=== PATIENT | male | born 2000 | race African-American/Black ===

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

== ENCOUNTER 2021-06-15 16:17 | Emergency (ER) | payer BC, MEDICAID ==
[~2021-06-15] VITALS: Ht 185.4 cm; Wt 109.4 kg
--- OUTSIDE RECORDS SUMMARY | 2021-06-15 16:21 | XMS REPORT | Clinical Summary ---
Author Author [facility] Organization [facility] Address Unknown Phone Unavailable Care Team Providers Care Hr Specialist Name Role Phone No, Pcp INSURANCE COUNSELOR PP Unavailable Allergies No known active allergies Medications No known medications Active Problems Not on file Social History Date Tobacco Use Types Packs/Day Years Used Never Smoker Smokeless Tobacco: Never Used Sex Assigned at Date Recorded Not on file Last Filed Vital Signs Reading Time Taken Comments Vital Sign 128/80 04/22/2020 4:01 PM EDT Blood Pressure 61 04/22/2020 3:45 PM EDT Pulse 36.6 C (97.8 F) 04/22/2020 3:45 PM EDT Temperature 20 04/22/2020 3:45 PM EDT Respiratory Rate 98% 04/22/2020 3:45 PM EDT Oxygen Saturation - - Inhaled Oxygen Concentration 119 kg (263 lb) 04/22/2020 3:45 PM EDT Weight 185.4 cm (6' 1") 04/22/2020 3:45 PM EDT Height 34.7 04/22/2020 3:45 PM EDT Body Mass Index 98.93 % 04/22/2020 3:45 PM EDT Body Mass Index Percentile Growth Chart: [facility] (Boys, 2-20 Years) Plan of Treatment Not on file Results Not on filefrom Last 3 Months Insurance Type Payer Benefit Subscriber ID Effective Phone Address Plan / Dates Group UNINSURED-COVID [facility] UNINSURED- xxxxx xxx 07/20 PROGRAM COVID [facility] [id number] -Present [facility] PROGRAM Care Teams Start Date End Date Hr Specialist Relationship Specialty 07/20/20 No, Pcp, INSURANCE COUNSELOR PCP - General Family N/A Do not use Medicine
[2021-06-15 16:22] VITALS: BP 142/70
[2021-06-15 16:42] LABS: BILIRUBIN,URINE NEGATIVE (NEGATIVE); CLARITY,URINE CLEAR; COLOR,URINE YELLOW; GLUCOSE, URINE (UA) NEGATIVE (NEGATIVE); KETONES,URINE NEGATIVE (NEGATIVE); LEUKOCYTE ESTERASE ,URINE NEGATIVE (NEGATIVE); NITRITE,URINE NEGATIVE (NEGATIVE); PROTEIN,URINE NEGATIVE (NEGATIVE)
[2021-06-15 16:43] LABS: BACTERIA,URINE FEW /HPF; SQUAMOUS EPITHELIAL CELL,UR 0-2 /HPF; WBC,URINE 50-100 /HPF
--- NOTE | 2021-06-15 16:43 | ED General ---
General Chief Complaint: - Reproductive Stated Complaint: ABD PAIN Source of Information: Patient History of Present Illness Date Seen by Provider: Jun 15, 2021 Time Seen by Provider: 16:25 Initial Comments Patient is a 20-year-old -[place] male who presents with left-sided pelvic pain starting 3 weeks ago which resolved a week ago. Patient is concerned that he may have an STD or have STD exposure. He denies urinary frequency urgency dysuria and burning. He denies penile discharge. No testicular pain tenderness or swelling. No acute symptoms or complaints. 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 Patient resting comfortably on exam. No history of hernias. Timing/Duration: Gone Now, Other Modifying Factors: improves with Other Associated Systoms: Other Allergies and Home Medications Allergies Coded Allergies: No Known Drug Allergies (Unverified , 11/27/20) Patient Home Medication List Home Medication List Reviewed: Yes Review of Systems Review of Systems Constitutional: see HPI EENTM: see HPI Respiratory: see HPI Cardiovascular: see HPI Gastrointestinal: see HPI Genitourinary: no symptoms reported Musculoskeletal: see HPI Skin: see HPI Psychiatric/Neurological: See HPI Hematologic/Lymphatic: See HPI Immunological/Allergic: see HPI Past [id number] Hx Patient Social History Tobacco Use?: No Smoking Status: Never a Smoker Substance use?: No Alcohol Use?: No Pt feels they are or have been: No Immunizations Up To Date First/Initial COVID19 Vaccinat: n/a Second COVID19 Vaccination Rusty: n/a COVID19 Vaccine Night Monitor: n/a Seasonal Allergies Seasonal Allergies: No Past Medical History Surgeries: No Respiratory: No Cardiac: No Neurological: No Genitourinary: No Gastrointestinal: No Musculoskeletal: No Endocrine: No HEENT: No Cancer: No Psychosocial: No Integumentary: No Blood Disorders: No Physical Exam Vital Signs Capillary Refill : Height, Weight, BMI Height: '" Weight: lbs. oz. kg; 33.00 BMI Method: General Appearance: No Apparent Distress, WD/WN Eyes: Bilateral Eye Normal Inspection, Bilateral Eye PERRL HEENT: PERRL/EOMI Gastrointestinal: Non Tender, Soft; No Hernia Focused Exam Sepsis Stage: Ruled Out Progress/Results/Core Measures Suspected Sepsis SIRS Temperature: Pulse: Respiratory Rate: Blood Pressure / Mean: Results/Orders My Orders Orders - WU,FIDEL DO Chlamydia Trachomatis Urine (06/15/21 16:25) Ua Culture If Indicated (06/15/21 16:25) Vital Signs/I&O Capillary Refill : Departure Communication (Admissions) Patient is symptomatic with normal physical exam. Will test urine with PCP/h [facility] follow-up. Return precautions reviewed Impression Primary Impression: Concern about STD in male without diagnosis Disposition: HOME, SELF-CARE Condition: Stable Departure-Patient Inst. Decision time for Depature: 16:44 Referrals: NO,LOCAL PHYSICIAN (PCP/Family) Primary Care Physician Add. Discharge Instructions: Please follow-up with Pending sale to [facility] STD exposure and further testing. Please follow-up with local PCP for recurrent abdominal pain. Return to the ED if new or worsening symptoms. All discharge instructions reviewed with patient and/or family. Voiced understanding. FIDEL WU DO Jun 15, 2021 16:43
[2021-06-15] MEDS ORDERED: AZITHROMYCIN 250 MG TAB (ZITHROMAX) PO ONE (17:00)
[2021-06-15] MEDS ORDERED: LIDOCAINE 1% INJ 20 ML 20 ML VIAL INJ ONE (17:00)
[2021-06-15] MEDS ORDERED: cefTRIAXone 250 MG/2.5 ML ML IM ONE (17:00)
== END 2021-06-15 17:37 | disposition home or self-care (01) ==
LOC: EDUNIT# 16:17 → ER FS 16:18
DX: R10.2 Pelvic and perineal pain (principal)
CPT/HCPCS: 36415; 81000; 87088; 87491; 99284